=== PATIENT | male | born 1995 | race Caucasian/White ===

== ENCOUNTER → 2020-07-03 | Outpatient (CLI) | payer OTHER ==
--- NOTE | 2020-07-03 14:10 | PFTRPT ---
Height: 68.00 Inches Weight: 175.00 Lbs BSA: 1.93 Diagnosis: SOB DATE: 07/03/2020 ORDERING PHYSICIAN: KEY Myers Pre and post bronchodilator studies have excellent technical quality. Forced vital capacity is normal. FEV1 is in proportion. Obstructive index is therefore normal. Expiratory limit of the flow-volume loop is normal. No significant bronchodilator response is identified. Total lung capacity is normal. Residual volume is in proportion. Diffusing capacity is normal. No hemoglobin available for correction. Airway resistance and conductance are normal. IMPRESSION: Normal study. MTDD
== END ==
LOC: M CARPUL 13:36
PROVIDERS: ATTEND Physician Assistant
DX: R06.2 Wheezing (principal)

== ENCOUNTER 2022-05-25 09:54 | Emergency (ER) | payer OTHER ==
[~2022-05-25] VITALS: Ht 172.7 cm; Wt 85.4 kg
[2022-05-25] MEDS ORDERED: MELO15TA28 (10:08)
[2022-05-25 11:48] LABS: BASO # 0.1 10^3/uL (0.0-0.2); BASO % 0.8 % (0.0-1.0); EOS # 0.1 10^3/uL (0.0-0.5); EOS % 1.7 % (0.0-3.0); HEMATOCRIT 47.2 % (42.0-52.0); HEMOGLOBIN 15.5 g/dl (13.5-17.5); LYMPH % 30.6 % (24.0-44.0); MEAN CORPUSCULAR HEMOGLOBIN 28.9 pg (27.0-33.0); MEAN CORPUSCULAR HGB CONC 32.8 g/dl (32.0-36.5); MEAN CORPUSCULAR VOLUME 88.1 fl (80.0-96.0); MONO # 0.7 10^3/uL (0.0-0.8); MONO % 10.4 % (2.0-8.0); NEUTROPHILS # 3.6 10^3/uL (1.5-8.5); NEUTROPHILS % 56.2 % (36.0-66.0); PLATELET COUNT, AUTOMATED 243 10^3/uL (150-450); RED BLOOD COUNT 5.36 10^6/uL (4.30-6.10); WHITE BLOOD COUNT 6.5 10^3/uL (4.0-10.0)
[2022-05-25 12:12] LABS: BLOOD UREA NITROGEN 16 MG/DL (9-23); CALCIUM LEVEL 9.5 MG/DL (8.5-10.1); CARBON DIOXIDE LEVEL 29 MMOL/L (20-31); CHLORIDE LEVEL 102 MMOL/L (98-107); CK-MB VALUE MASS < 1.0 NG/ML (<3.6); CREATININE FOR GFR 1.09 MG/DL (0.70-1.30); GLOMERULAR FILTRATION RATE > 60.0 (>60); GLUCOSE, FASTING 85 MG/DL (60-100); POTASSIUM SERUM 4.4 MMOL/L (3.5-5.1); SODIUM LEVEL 139 MMOL/L (136-145)
[2022-05-25 12:15] LABS: CPK CREATINE PHOSPHOKINASE 303 U/L (46-171); MB/CK RELATIVE INDEX 0.33 (< OR =4)
[2022-05-25 13:08] LABS: CK-MB VALUE MASS < 1.0 NG/ML (<3.6)
[2022-05-25 13:10] LABS: CPK CREATINE PHOSPHOKINASE 272 U/L (46-171); MB/CK RELATIVE INDEX 0.36 (< OR =4)
[2022-05-25] MEDS ORDERED: IBUP80TA PO (13:53)
[2022-05-25 14:06] VITALS: BP 135/74
== END 2022-05-25 14:10 | disposition home or self-care (01) ==
LOC: M ED 09:54
DX: S46.912A Strain of unspecified muscle, fascia and tendon at shoulder and upper arm level, left arm, initial encounter (principal); S43.402A Unspecified sprain of left shoulder joint, initial encounter; M24.812 Other specific joint derangements of left shoulder, not elsewhere classified; X50.0XXA Overexertion from strenuous movement or load, initial encounter; Y99.1 Military activity; Z88.1 Allergy status to other antibiotic agents